=== PATIENT | female | born 1985 | race Caucasian/White ===

== ENCOUNTER 2016-11-02 09:22 | Emergency (ER) | payer MEDICARE, MEDICAID ==
[2016-11-02 09:32] VITALS: BP 161/106; PULSE 138; TEMP 98.4; BMI 43.4
[2016-11-02] MEDS ORDERED: Lidocaine 2%-Epinephrine 1:100,000 20ml vial INF ONE (11:06)
[2016-11-02] MEDS ORDERED: LIDOCAINE 1% 5 ML (METHYLPARABEN FREE) ONE (11:07)
--- NOTE | 2016-11-02 11:32 | EDPRACDOC ---
- General Information Chief Complaint: Wound Stated Complaint: ABSCESS Time Seen by Provider: 11/02/16 10:45 Information Source: Patient Mode of Arrival:: Car Home Medications: Home Medications Oxycodone Immediate Release [Oxy-Ir] 5 mg PO Q6H PRN #7 tab 11/02/16 Sulfamethoxazole/Trimethoprim [Bactrim Ds Tablet] 1 tab PO BID #20 tab 11/02/16 Allergies/Adverse Reactions: Allergies Allergy/AdvReac Type Severity Reaction Status Date / Time ziprasidone HCl [From Geodon] Allergy Severe Anaphylaxis Verified 08/21/16 00:45 * ziprasidone mesylate Allergy Severe Anaphylaxis Verified 08/21/16 00:45 [From Geodon] * ketorolac tromethamine Allergy Intermediate Hives* Verified 08/21/16 00:45 [From Toradol] latex Allergy Intermediate Rash-Locali Verified 08/21/16 00:45 zed tramadol Allergy Mild Hives* Verified 08/21/16 00:45 acetaminophen [From Tylenol] Allergy Unknown See Verified 08/21/16 00:45 Comments topiramate [From Topamax] Allergy Unknown See Verified 08/21/16 00:45 Comments - History of Present Illness Onset: 2-3 WEEKS HPI: c/o abdominal abscess with drainage x 2-3 weeks. Hx of multiple abscess. Last Tetanus: No Relevent History Of: Denies: Diabetes Prior Abscess: Reports: Different Pain: Reports: Moderate Quality: Reports: Painful, Red Associated Signs & Symptoms: Reports: None ED Past Medical History - History Reviewed Yes Nurses notes reviewed and agree except as marked - Patient Medical History Respiratory History: Reports: Asthma, COPD GI/ History: Reports: Urinary Tract Infection Psychological History: Reports: Bipolar Disorder, Substance Use Disorder ( Cocaine use (Stephany;2006)). Denies: Depression Systemic History: Denies: Cancer Additional Past Medical History: MRSA Surgical History: Reports: Other (BTL) - Family Medical History Reports: Hypertension (GRANDMOTHER), Diabetes (GRANDMOTHER), Stroke (FATHER) - Social Medical History Smoking Status: Never smoker Social History: Reports: Substance Use Disorder (Cocaine use (Stephany;2006)) EDM Review of Systems - Review of Systems ROS Negative Except as Marked: Yes All systems reviewed and were negative except as marked Integumentary: Other (abscess, abdominal) - Physical Exam Constitutional: No apparent distress, Alert Oriented to: Time, Person, Place Last recorded Vital Signs: Last Vital Signs Temp 98.4 F 11/02/16 09:29 Pulse 138 H 11/02/16 09:29 Resp 18 11/02/16 09:29 BP 161/106 H 11/02/16 09:29 Pulse Ox 97 11/02/16 09:29 Oxygen Pulse Oxygen Saturation 97 O2 Device Room Air Oxygen Flow Rate Fraction of Inspired Oxygen ( FIO2) - HEENT Head: Normal Eye Exam: negative: Conjunctival Injection, Scleral Icterus Oropharynx: negative: Drooling TMJ: Normal Nose: No Symptoms Reported Neck: Normal - Respiratory/Cardiovascular Respiratory: Normal - CTA Cardiovascular: Normal - GI Auscultation: Normal Palpation: Normal Tenderness: Non tender - Musculoskeletal Back: Normal Extremities: Normal - Integumentary Skin: Other (abscess epigastric area. red, tender, not draining. Non fluctuant.) - Neurologic Mood Description: Normal Thought: Coherent Perception: Normal ED Abscess/Mass Exam - Integumentary Skin: Warm Mass: Red, Tender, Warm, Firm, Local Cellulitis. negative: Pus Drainage Lymphatics: negative: Lymphangitis ED Procedures - Incision and Drainage Informed of risks, benefits and alternatives described.: Yes Informed Consent Signed: Verbal Indication: Painful Mass Anesthetic: Lidocaine, with Epi Prep: Betadine Blade Size: 11 Incised Site drained: Reports: Blood Incised site was: Irrigated, Not Packed with Iodoform Decision Time to Discharge: 11:26 - Departure Disposition: Home Condition: Stable Final Diagnosis: Abscess Instructions: MRSA (Methicillin Resistant Staphylococcus Aureus) (ED), Abscess (ED) Education/Counseling Given To: Patient Education/Counseling Given Regarding: Diagnosis, Treatment, Prognosis, Follow Up Referrals: Lyle Rosario MD [Staff Physician] - One Week Prescriptions: New Oxycodone Immediate Release [Oxy-Ir] 5 mg PO Q6H PRN #7 tab PRN Reason: Pain Sulfamethoxazole/Trimethoprim [Bactrim Ds Tablet] 1 tab PO BID #20 tab Additional Instructions: Follow up with primary care. Return to ED for any new or worsening symptoms.
== END 2016-11-02 11:56 | disposition home or self-care (01) ==
LOC: ED 09:22
DX: L02.211 Cutaneous abscess of abdominal wall (principal)
CPT/HCPCS: 10060; 96372; 99282; A9270; J3490